=== PATIENT | female | born 1965 | race Caucasian/White ===

== ENCOUNTER 2016-07-06 07:48 | Day surgery (SDC) | payer BC ==
[2016-06-28 12:05] VITALS: BMI 34.9
[~2016-07-06 07:48] MED LIST: CEFAZOLIN 1 GM/D5W 50 ML IVPB ONE; CELECOXIB 200 MG CAPSULE PO ONE; GABAPENTIN 300 MG CAPSULE (FP) PO ONE; TRANEXAMIC ACID 1000 MG/10 ML VIAL IVPUSH ONE; oxyCODONE HCL 10 MG SUSTAINED ACTING TABLET PO ONE
[2016-07-06] MEDS ORDERED: MIDAZOLAM HCL 2 MG/2 ML SINGLE DOSE VIAL ONE ×3 (09:12→12:43)
[2016-07-06] MEDS ORDERED: ROPIVACAINE HCL 0.5% 30ML VIAL ONE (09:13)
[2016-07-06] MEDS ORDERED: TRANEXAMIC ACID 1000 MG/10 ML VIAL ONE ×2 (10:30→10:57)
[2016-07-06] MEDS ORDERED: BUPIVACAINE HCL/PF 0.5% (5MG/ML) 10 ML VIAL ONE (10:56)
[2016-07-06] MEDS ORDERED: ceFAZolin SODIUM 1 GM VIAL ONE (10:58)
[2016-07-06] MEDS ORDERED: PROPOFOL 20 ML ONE ×5 (11:02→13:15)
[2016-07-06] MEDS ORDERED: DEXAMETHASONE SOD PHOSPHATE 4 MG/1 ML VIAL ONE (11:36)
[2016-07-06] MEDS ORDERED: ONDANSETRON 4 MG/2 ML VIAL ONE (11:36)
[2016-07-06] MEDS ORDERED: ROPIVICAINE 0.2%/MORPH PF/KETOROLAC - 51ML DISP.SYRINGE IA ONE (13:14)
[2016-07-06] MEDS ORDERED: MAG HYDROX/AL HYDROX/SIMETH 30 ML UNIT-DOSE CUP PO PRN (13:38)
[2016-07-06] MEDS ORDERED: LACTATED RINGERS SOLUTION 1,000 ML IV SCH (13:45)
[2016-07-06] MEDS ORDERED: PROMETHAZINE HCL 25 MG/1 ML VIAL ONE (13:50)
[2016-07-06] MEDS ORDERED: oxyCODONE HCL 5 MG TABLET PO PRN (14:17)
[2016-07-06] MEDS ORDERED: PROMETHAZINE HCL 25 MG/1 ML VIAL IVPUSH PRN (14:17)
--- NOTE | 2016-07-06 14:27 | OP ---
DATE OF OPERATION: PREOPERATIVE DIAGNOSIS: Right knee medial compartment osteoarthritis. POSTOPERATIVE DIAGNOSIS: Right knee medial compartment osteoarthritis. OPERATION PERFORMED: Right knee medial compartment arthroplasty with image- guided robotic assistance. DISPOSITION: Patient returned to the recovery room in stable condition. COMPONENTS USED: Fe JOHNNIE Restoris size 3 right medial tibial and 3 right medial femur as well as 1/8-mm articular insert. DRAINS: None. ESTIMATED BLOOD LOSS: Less than 50 mL. TOTAL TOURNIQUET TIME: 88 minutes. Preoperative varus is 11 degrees. Postoperative is 5.5 degrees. FINDINGS: Severe end-stage osteoarthritis of the medial compartment with denuded bone and osteophytes. Preservation of the cartilage in the lateral compartment and patellofemoral compartment with only approximately 30% grade 2 changes in the patellofemoral compartment. Intact ACL and PCL. INDICATION FOR THE PROCEDURE: Patient failed many years of nonoperative treatment for right knee medial compartment arthritis including physical therapy, nonsteroidal anti-inflammatories, activity modifications, and intra-articular injections. Preoperatively in the waiting area as well as in the office I had a long discussion with the patient regarding the plan, the expected outcome, and the risks, benefits, and alternatives of surgery. The risks include, but are not limited to, infection, which may require future surgery and removal of implants, bleeding, which may require transfusion, damage to nerves, arteries, veins, tendons, muscles, and other adjacent structures leading to possible numbness, weakness, decreased function, and/or possible need for surgical repair. Also discussed was the possibility of intraoperative and postoperative fractures, implant loosening, stiffness, need for extensive therapy, and need for revision surgery for a variety of reasons. Specifically with a partial knee replacement we discussed the possibility of needing either short- or long-term conversion to a total knee replacement. We also discussed medical complications such as blood clots. This was discussed at length, and consent was obtained. PROCEDURE IN DETAIL: The patient was brought to the operating room and placed on the operating room table in a supine position. Following induction of spinal anesthesia, a well-padded tourniquet was placed high on the right thigh, and the right lower extremity was prepped and draped in a sterile fashion. A time-out was performed to confirm the correct side, verified that the site was marked, and confirmed the correct patient and procedure to be performed as well as that the patient received the appropriate preoperative antibiotics, and txa, and had a compression device on the nonoperative leg, and that the patient was appropriately registered in the computer. The tourniquet was then elevated followed by a midline incision and then a mini medial parapatellar arthrotomy. We then placed 2 pins in the femur and 2 pins in the tibia through 1-cm incisions after bluntly dissecting down to the bone then placed to but not through the distal cortex. We then placed checkpoints in the femur and on the tibia and then used the probes and the robot to register the patient's anatomy appropriately. We inspected the rest of the knee, and our findings are noted above. We then planned for our procedure using the robot and then, while protecting the surrounding soft tissues, we burred in accordance with our plan. We then resected the medial meniscus and copiously irrigated the knee. We then placed the trial implants that are the same size as our above implants. We had good stability, range of motion, soft tissue tension, patellar tracking, and were well balanced with regards to varus and valgus stress. We then removed our trial components and copiously irrigated the knee. We performed sequential supplementation first starting with the tibia and then the femur. We placed a trial poly. We waited until the cement was hard and all excess cement was removed. We then tried to impact the poly after removing the trial, and it was caught on a piece of debris that was in the tray. We then discarded this poly, removed all the debris from the tray, and made sure all cement was removed from the entire knee and then impacted the final poly, and it seated flush. With the final components in place, there was good stability, soft tissue tension, range of motion, patella tracking, and the knee was well balanced with regards to varus and valgus stress. The checkpoints and pins were then removed. The knee was copiously irrigated. A local anesthetic was injected, and No. 1 Vicryl was used for the arthrotomy, 2-0 Vicryl for the subcutaneous, and sanjeev for the skin. The knee was wrapped in a dry, sterile compressive dressing, and the tourniquet was released. Compartments were soft at the end of the procedure, and pulses were palpated. Ezio [id number]
[2016-07-06] MEDS: oxyCODONE HCL 5 MG TABLET PO PRN ×3 (16:00→22:12)
[2016-07-06] MEDS ORDERED: oxyCODONE HCL 5 MG TABLET ONE (16:01)
[2016-07-06] MEDS: CEFAZOLIN 2 GM/D5W 50 ML IVPB SCH (18:28)
[2016-07-06] MEDS: ACETAMINOPHEN 325 MG TABLET (FP) PO SCH ×2 (18:35→23:44)
[2016-07-06] MEDS: ASPIRIN 325 MG TABLET PO SCH (21:31)
[2016-07-06] MEDS: SENNOSIDES/DOCUSATE COMBO (SENNA PLUS) TABLET (UD) PO SCH (21:31)
[2016-07-06] MEDS: GABAPENTIN 300 MG CAPSULE (FP) PO SCH (21:32)
[2016-07-06] MEDS: CELECOXIB 200 MG CAPSULE PO SCH (21:33)
[2016-07-06] MEDS ORDERED: SPIRONOLACTONE 25 MG TABLET (FP) PO SCH (22:00)
[2016-07-06] MEDS ORDERED: metFORMIN HCL 500 MG TABLET (FP) PO SCH (22:00)
[2016-07-06] MEDS ORDERED: GABAPENTIN 300 MG CAPSULE (FP) PO SCH (22:00)
[2016-07-07] MEDS: CEFAZOLIN 2 GM/D5W 50 ML IVPB SCH (01:55)
[2016-07-07] MEDS: ONDANSETRON 4 MG/2 ML VIAL IVPB PRN ×2 (02:39→08:07)
[2016-07-07 06:00] VITALS: PULSE 79; TEMP 97.9
[2016-07-07] MEDS: ACETAMINOPHEN 325 MG TABLET (FP) PO SCH ×2 (06:26→11:13)
[2016-07-07] MEDS: oxyCODONE HCL 5 MG TABLET PO PRN ×2 (06:35→11:13)
--- NOTE | 2016-07-07 08:08 | PN ---
Progress Note (short form) - Note Progress Note: POD #1 s/p Right knee medial compartment arthroplasty JOHNNIE assisted Doing well. Sitting at bedside with athrombic pumps in place. C/o incisional tenderness. Pain control via PRN meds. Had nausea at 2AM that was quelled with Zofran. She has gotten OOB and ambulated a little. Voiding spontaneously. Tolerating PO diet. Denies CP, SOB, palpitations. Last Vital Signs Temp Pulse Resp BP Pulse Ox 97.9 F 79 18 123/76 95 // 05:59 /12/16 05:59 /12/16 05:59 07/07/16 05:59 // 05:59 PE GEN: Alert. NAD PULM: CTA b/l anteriorly COR: RRR ABD: Soft. NT. LE: LLE unremarkable. RLE dressing c/d/i. 2+ PT/DP Problem List - Problems (1) Localized osteoarthritis of right knee Assessment/Plan: POD #1 s/p JOHNNIE right knee medial compartment Plan as per Dr. Madrid's PA Cont Diabetic diet Weight bearing as tolerated with cane or crutches All medication prescriptions-home exercise program-post op instructions and physical therapy prescription at home. Follow up as scheduled Code(s): M17.9 - OSTEOARTHRITIS OF KNEE, UNSPECIFIED
[2016-07-07] MEDS ORDERED: PANTOPRAZOLE 40 MG TABLET (FP) PO SCH (10:00)
[2016-07-07] MEDS ORDERED: LIRAGLUTIDE 0.6 MG/0.1 ML PEN.INJCTR SQ SCH (10:15)
[2016-07-07] MEDS: CELECOXIB 200 MG CAPSULE PO SCH (10:19)
[2016-07-07] MEDS: GABAPENTIN 300 MG CAPSULE (FP) PO SCH (10:19)
[2016-07-07] MEDS: ASPIRIN 325 MG TABLET PO SCH (10:19)
[2016-07-07] MEDS ORDERED: PROMETHAZINE HCL 25 MG/1 ML VIAL IVPB PRN (10:20)
[2016-07-07] MEDS: SENNOSIDES/DOCUSATE COMBO (SENNA PLUS) TABLET (UD) PO SCH (10:20)
--- NOTE | 2016-07-07 10:21 | PN ---
Progress Note (short form) - Note Progress Note: ANESTHESIA POST-OP CHECK 50F s/p right knee medial arthroplasty under spinal anesthesia and adductor canal block, POD #1. C/o of some nausea, no vomiting, tolerating PO, partially alleviated with zofran. Pain 2/10 and tolerable. Denies nnumbness, weakness, backache, headache. Ambulating and voiding. Vital Signs Temperature 97.9 F 07/07/16 05:59 Pulse Rate 79 07/07/16 05:59 Respiratory Rate 18 07/07/16 05:59 Blood Pressure 123/76 07/07/16 05:59 O2 Sat by Pulse Oximetry (%) 95 07/07/16 05:59 Active Medications Acetaminophen (Tylenol -) 650 mg PO Q6H [facility] Stop: 07/09/16 17:59 Last Admin: 07/07/16 06:26 Dose: 650 mg Al Hydroxide/Mg Hydroxide (Mylanta Oral Suspension -) 30 ml PO Q4H PRN PRN Reason: DYSPEPSIA Aspirin (Asa -) 325 mg PO BID [facility] Last Admin: 07/07/16 10:19 Dose: 325 mg Celecoxib (Celebrex -) 200 mg PO BID [facility] Last Admin: 07/07/16 10:19 Dose: 200 mg Fentanyl (Sublimaze Injection -) 50 mcg IVPUSH [id number] PRN PRN Reason: PAIN Stop: 07/09/16 14:18 Gabapentin (Neurontin -) 300 mg PO BID [facility] Last Admin: 07/07/16 10:19 Dose: 300 mg Liraglutide (Victoza -) 1.8 mg SQ DAILY@0700 [facility] Last Admin: 07/07/16 10:20 Dose: Not Given Metformin HCl (Glucophage -) 500 mg PO [facility] Last Admin: 07/06/16 21:33 Dose: Not Given Non-Formulary Medication (Romeo-3s/Dha/Epa/Fish Oil [Fish Oil Dr 1,000 Mg Softgel]) 1 each PO [facility] Ondansetron HCl (Zofran Injection) 4 mg IVPB Q6H PRN PRN Reason: NAUSEA Last Admin: 07/07/16 08:07 Dose: 4 mg Oxycodone HCl (Roxicodone -) 5 mg PO Q3H PRN PRN Reason: PAIN LEVEL 1-5 Oxycodone HCl (Roxicodone -) 10 mg PO Q3H PRN PRN Reason: PAIN LEVEL 6-10 Last Admin: 07/07/16 06:35 Dose: 10 mg Pantoprazole Sodium (Protonix -) 40 mg PO DAILY [facility] Last Admin: 07/07/16 10:20 Dose: 40 mg Promethazine HCl (Phenergan Injection -) 12.5 mg IVPB Q6H PRN PRN Reason: NAUSEA AND/OR VOMITING Senna/Docusate Sodium (Pericolace -) 2 tablet PO BID [facility] Last Admin: 07/07/16 10:20 Dose: 2 tablet Spironolactone (Aldactone -) 100 mg PO HS [facility] Last Admin: 07/06/16 21:33 Dose: Not Given Gen: Awake, alert No apparent anesthesia complications. Nausea most likely effect of opioid analgesics. Continue zofran and may administer phenergan prn. Pain well controlled. Continue management as per primary team.
[2016-07-07 11:41] VITALS: BP 125/76
== END 2016-07-07 11:44 | disposition home health service (06) ==
LOC: FASU 07:48 → FM/S 17:37 → FASU 07-07 11:44
PROVIDERS: ATTEND Orthopaedic Surgery
PROC: 8E0YXBZ Computer Assisted Procedure of Lower Extremity (ICD-10-PCS; 2016-07-06)
PROC: 8E0Y0CZ Robotic Assisted Procedure of Lower Extremity, Open Approach (ICD-10-PCS; 2016-07-06)
PROC: 0SRC0L9 Replacement of Right Knee Joint with Medial Unicondylar Synthetic Substitute, Cemented, Open Approach (ICD-10-PCS; principal; 2016-07-06 12:03)
DX: M17.11 Unilateral primary osteoarthritis, right knee (principal)
CPT/HCPCS: 20985; 27446; C1776; S2900; 73560-TC-RT; 84703; 94760; 97116-GP; 97163-GP